=== PATIENT | female | born 1975 | race Caucasian/White ===

== ENCOUNTER 2018-03-22 16:53 | Outpatient (RCR) | payer BC, SELFPAY ==
--- NOTE | 2018-03-22 17:36 | HP.PTEVAL_ITS ---
Patient's Visit Information SALUD BOLANOS is a 43 year old F referred to Physical Therapy by Kee Stringer MD with a diagnosis of BPPV. Date of Evaluation: 03/22/18 Physical Therapist: Cherelle Coy - Visit Plan Plan: Pt will call in within 2 weeks if she has any kind of dizziness or nystagmus come back. She will call in at 2 week eusebio to let me know how she is feeling and if feeling good, she will be discharged. - Subjective Subjective: Pt is doing really good today. She reports that she is having no dizziness today, just some pressure in head from time to time. and she was put on meclazeine and just came off the meds yesterday morning cause she wanted to see how she would do today....had an episode on Tuesday. Dr saw the eye twitch thing last week. SHe was getting the spins when lay down and turn directions and that started Months ago. The spinning lasts 20 seconds... felt breathless all the time (lightheadedness). The Dr did this thing with my head and saw the nystagmus. Pt L4/L5 sciatica. Pt has had disectomy and epidurals and nerve blocks. Her dad got vertigo when he was 45. - Objective -Hallpike to the R and - Hallpike to the L for dixxiness or nystagmus. - B roll test for dizziness or nystagmus - Rehabilitation Potential Rehabilitation Potential: Good - Anticipated Interventions Thank you for the opportunity to evaluate your patient. For Medicare and Medicare HMO plans, please review the plan of care and approve it. It will need to be FAXED BACK to us at [phone] for Medicare purposes. Please let me know if there are questions or concerns regarding this plan of care. Physician Signature: Date:
--- NOTE | 2018-09-15 08:49 | HP.PT.NRP ---
HP - Discharge Summary (1) - Patient Information SALUD BOLANOS was seen in my office for initial evaluation on 03/22/18. The following Plan of Care was established for this patient: This patient was last seen in our office 03/22/18. Pertinent comments regarding their Physical therapy will appear below: Pt was to call in if she had any recurrent nystagmus and she did not call in. She will be discharged at this time. At this point I will be discontinuing this patient from physical therapy. I would be happy to see this patient again in the future if found appropriate by the physician. Thank you! Cherelle Coy, MPT
== END 2018-03-22 19:00 | disposition home or self-care (01) ==
LOC: PT 16:53
PROVIDERS: Family Provider Family Medicine; PCP Family Medicine; Visit Provider Family Medicine
DX: H81.10 Benign paroxysmal vertigo, unspecified ear (principal)
CPT/HCPCS: 97161

== ENCOUNTER → 2018-04-11 10:57 | Outpatient (CLI) | payer BC, SELFPAY ==
[2018-04-11 11:01] LABS: Bacteria 0 SEEN /hpf (None Seen); Red Blood Cells-Urine 0 SEEN /hpf (0-5)
[2018-04-11 12:10] LABS: Absolute Lymphocyte Count 2.29 X10^3/ul (0.83-4.51); Absolute Neutrophil Count 3.6 X10^3/uL (2.0-7.7); Basophil# 0.02 X10^3/uL; Basophil% 0.3 % (0-1); Eosinophil# 0.17 X10^3/uL; Eosinophils% 2.6 % (0-5); Hematocrit 38.1 % (37-47); Hemoglobin 12.1 g/dl (12.0-15.0); Lymphocyte # 2.29 X10^3/ul (4.0); Lymphocyte % 35.4 % (19-41); Mean Corp Hgb Conc 31.8 g/gl (32-36); Mean Corpuscular Hgb 26.5 pg (27.0-32.0); Mean Corpuscular Volume 83.4 fL (81-99); Mean Platelet Vol. 10.8 fl (6.2-12.0); Monocyte# 0.39 X10^3/uL; Neutrophil # 3.59 X10^3/uL (2.7-7.7); Neutrophil % 55.5 % (47-70); Platelet Count 229 K/mm3 (150-450); RBC Distribution Width CV 13.7 % (11.6-14.6); RBC Distribution Width SD 41.4 fl (35.1-43.9); Red Blood Count 4.57 M/mm3 (4.2-5.4); White Blood Count 6.5 K/mm3 (4.4-11.0)
[2018-04-11 12:11] LABS: POSITIVE COUNT NO; POSITIVE DIFFERENTIAL NO; POSITIVE MORPHOLOGY NO
[2018-04-11 12:13] LABS: Color, Urine Yellow (Yellow); Glucose, Dipstick Normal (Normal); Ketone-Dipstick Negative (Negative); Leukocyte Esterase-Dipstick Negative /ul (Negative); Nitrite-Dipstick Negative (Negative); Occult Blood-Urine Negative /ul (Negative); Protein-Dipstick Negative (Negative); Specific Gravity, Urine 1.015 (1.002-1.030); Urine Bilirubin Dipstick Negative (Negative); Urine Clarity Clear (Clear); Urine Urobilinogen Normal (Normal)
[2018-04-11 12:23] LABS: White Blood Cells 0-5 SEEN /hpf (0-5)
[2018-04-11 12:24] LABS: Mucous, Urine RARE /hpf (<or=2+)
[2018-04-11 12:25] LABS: Squamous Epithelial Cells - UA 0-5 SEEN /hpf (5-10)
[2018-04-11 12:33] LABS: Microalbumin,Random Urine 9.4 mg/L (NO RANGE EST.); Microalbumin:Creatinine Ratio 6.1 mg/g CRE (<30 mg/g CRE)
[2018-04-11 12:51] LABS: AST(SGOT) 17 U/L (15-37); Alanine Aminotransfer ALT/SGPT 40 U/L (13-56); Albumin, Serum 3.9 g/dL (3.2-5.0); Alkaline Phosphatase 78 U/L (45-117); Anion Gap 10 (5-15); BUN 11 mg/dL (7-18); BUN/Creat Ratio 17.5 RATIO (10-20); Calcium,Total 9.2 mg/dL (8.5-10.1); Chloride 107 mmol/L (98-107); Cholesterol 81 mg/dL (200); Creatinine, Serum 0.63 mg/dL (0.55-1.02); EST Glomerular Filtration Rate 109 mL/min (>60); Est Glom Filt Rate - Afr Amer 132 mL/min (>60); Globulin 3.8 g/dL (2.2-4.2); Glucose 94 mg/dL (74-106); High Density Lipoprotein 22 mg/dL; Potassium 3.6 mmol/L (3.5-5.1); Protein, Total 7.7 g/dL (6.4-8.2); Sodium Level 139 mmol/L (136-145); Thyroid Stim Hormone (TSH) 3.87 uIU/mL (0.358-3.74); Triglycerides 142 mg/dL; Very Low Density Lipoprotein 28 mg/dL (5-40)
[2018-04-12 09:56] LABS: T4 Free Direct 0.87 ng/dL (0.76-1.46)
[2018-04-14 12:08] LABS: Thyroid Peroxidase AB 175 IU/mL (0-34)
[2018-04-14 14:23] LABS: Anti-Thyroglobulin AB 17.5 IU/mL (0.0-0.9)
== END ==
PROVIDERS: Family Provider Family Medicine; PCP Family Medicine; Visit Provider Family Medicine
DX: I10 Essential (primary) hypertension (principal); E11.9 Type 2 diabetes mellitus without complications; E78.5 Hyperlipidemia, unspecified; R79.89 Other specified abnormal findings of blood chemistry
CPT/HCPCS: 36415; 80053; 80061; 81001; 82043; 82570; 84432; 84439; 84443; 85025; 86376; 86800

== ENCOUNTER → 2018-05-18 09:16 | Outpatient (CLI) | payer BC, SELFPAY ==
--- NOTE | 2018-05-18 09:24 | RAD_ITS ---
STUDY: AIR-CONTRAST ESOPHAGRAM STUDY REASON FOR EXAM: Female, 43 years old. Vomiting RADIATION DOSAGE (If Supplied By Facility): CTDIvol = ( 48.49 ) mGy, FLUOROSCOPY TIME (if supplied): (0:51) minutes/seconds, 15 images. TECHNIQUE: Barium pill swallow with sips of water is performed at the beginning of the study without difficulty. Multiple barium swallows were performed under fluoroscopic monitoring. Multiple views of the esophagus, the upper stomach were performed. COMPARISON: None. FINDINGS: Barium pill swallow with sips of water is performed at the beginning of the study without difficulty. The esophagus appears normal in size and shape it shows unremarkable mucosal pattern. There is no evidence of hiatal hernia or abnormal vascular compression. RAD/Esophagus Only IMPRESSION: Unremarkable study. Electronically Signed: Tomasa Peoples MD at 9:31 EDT Tel , Service support ,
== END ==
PROVIDERS: Family Provider Family Medicine; PCP Family Medicine; Referring Provider Family Medicine; Visit Provider Family Medicine
DX: K21.9 Gastro-esophageal reflux disease without esophagitis (principal)
CPT/HCPCS: 74220

== ENCOUNTER → 2018-05-19 10:48 | Outpatient (CLI) | payer BC, SELFPAY ==
--- NOTE | 2018-05-19 10:55 | NM_ITS ---
CLINICAL: 43-year-old female with reported history of early satiety. SEMI-SOLID PHASE 99m Tc SULFUR COLLOID GASTRIC EMPTYING STUDY COMPARISON: None available FINDINGS: The patient was administered 1.1 mCi of 99m Tc sulfur colloid mixed with oatmeal and consumed per os. Image acquisitions in the anterior-posterior projections for a total of 60 minutes. There is prompt visualization of the stomach. There is no gastroesophageal reflux identified. The T1/2 linear fit was calculated to be 50.15 minutes, (Normal: 12-56 minutes). NM/Gastric Emptying Study IMPRESSION: 1. NORMAL 99m Tc sulfur colloid semi-solid phase (oatmeal) gastric emptying imaging examination. A. There is normal and preserved semi-solid phase gastric emptying compared to normal controls. (Calos et al, J Nucl Med Tech 38: 186, 2010). Electronically Signed: Salvadro Aguayo DO at 23:17 EDT Tel , Service support ,
== END ==
PROVIDERS: Family Provider Family Medicine; PCP Family Medicine; Visit Provider Family Medicine
DX: R68.81 Early satiety (principal)
CPT/HCPCS: 78264; A9541

== ENCOUNTER → 2018-08-23 08:24 | Outpatient (CLI) | payer BC, SELFPAY ==
[2018-08-23 10:33] LABS: Absolute Lymphocyte Count 2.15 X10^3/ul (0.83-4.51); Absolute Neutrophil Count 2.6 X10^3/uL (2.0-7.7); Basophil# 0.03 X10^3/uL; Basophil% 0.6 % (0-1); Eosinophil# 0.15 X10^3/uL; Eosinophils% 2.8 % (0-5); Hematocrit 38.9 % (37-47); Hemoglobin 12.3 g/dl (12.0-15.0); Lymphocyte # 2.15 X10^3/ul (4.0); Lymphocyte % 40.8 % (19-41); Mean Corp Hgb Conc 31.6 g/gl (32-36); Mean Corpuscular Hgb 26.2 pg (27.0-32.0); Mean Corpuscular Volume 82.9 fL (81-99); Monocyte# 0.33 X10^3/uL; Monocyte% 6.3 % (0-10); Neutrophil # 2.61 X10^3/uL (2.7-7.7); Neutrophil % 49.5 % (47-70); Platelet Count 221 K/mm3 (150-450); RBC Distribution Width SD 39.5 fl (35.1-43.9); Red Blood Count 4.69 M/mm3 (4.2-5.4); White Blood Count 5.3 K/mm3 (4.4-11.0)
[2018-08-23 10:34] LABS: POSITIVE COUNT NO; POSITIVE DIFFERENTIAL NO; POSITIVE MORPHOLOGY NO
[2018-08-23 10:40] LABS: Microalbumin,Random Urine 55.4 mg/L (NO RANGE EST.); Microalbumin:Creatinine Ratio 30.8 mg/g CRE (<30 mg/g CRE)
[2018-08-23 10:46] LABS: Hemoglobin A1c 8.8 % (4.2-6.3)
[2018-08-23 11:19] LABS: ALB/GLOB Ratio 1.1 RATIO (0.9-2.4); AST(SGOT) 41 U/L (15-37); Alanine Aminotransfer ALT/SGPT 73 U/L (13-56); Alkaline Phosphatase 113 U/L (45-117); Anion Gap 11 (5-15); BUN 11 mg/dL (7-18); Calcium,Total 8.7 mg/dL (8.5-10.1); Chloride 102 mmol/L (98-107); Cholesterol 105 mg/dL (200); Creatinine, Serum 0.58 mg/dL (0.55-1.02); EST Glomerular Filtration Rate 119 mL/min (>60); Est Glom Filt Rate - Afr Amer 144 mL/min (>60); Globulin 3.7 g/dL (2.2-4.2); Glucose 185 mg/dL (74-106); High Density Lipoprotein 29 mg/dL; Potassium 3.4 mmol/L (3.5-5.1); Protein, Total 7.7 g/dL (6.4-8.2); Sodium Level 138 mmol/L (136-145); T4 Free Direct 0.94 ng/dL (0.76-1.46); Thyroid Stim Hormone (TSH) 2.77 uIU/mL (0.358-3.74); Triglycerides 228 mg/dL; Very Low Density Lipoprotein 46 mg/dL (5-40)
[2018-08-31 09:46] LABS: Anti-Thyroglobulin AB 13.8 IU/mL (0.0-0.9); Thyroglobulin RIA 12 ng/mL (.); Thyroid Peroxidase AB 109 IU/mL (0-34)
== END ==
PROVIDERS: Family Provider Family Medicine; PCP Family Medicine; Visit Provider Family Medicine
DX: E11.9 Type 2 diabetes mellitus without complications (principal); E06.3 Autoimmune thyroiditis; I10 Essential (primary) hypertension; E78.5 Hyperlipidemia, unspecified
CPT/HCPCS: 36415; 80053; 80061; 82043; 82570; 83036; 84432; 84439; 84443; 85025; 86376; 86800

== ENCOUNTER → 2018-09-04 15:40 | Outpatient (CLI) | payer BC, SELFPAY ==
[2018-09-04 17:55] LABS: Iron Binding Capacity,Total 331 ug/dL (250-450)
[2018-09-04 19:01] LABS: Vitamin D,25 Hydroxy 23.1 ng/mL (29.95-100.01)
--- OUTSIDE RECORDS SUMMARY | 2018-11-07 03:42 | XMS RPT_ITS ---
:1975 Author Organization OHIP Care Team Providers Name Role Phone Kee Stringer Attending Unavailable Kee Stringer Primary Care Unavailable Luis Leonard Attending Unavailable Kee Stringer Primary Care Unavailable Kee Stringer Attending Unavailable Kee Stringer Referring Unavailable Kee Stringer Primary Care Unavailable Kee Stringer Attending Unavailable Kee Stringer Primary Care Unavailable Kee Stringer Attending Unavailable Kee Stringer Referring Unavailable Kee Stringer Primary Care Unavailable Kee Stringer Attending Unavailable Kee Stringer Referring Unavailable Kee Stringer Primary Care Unavailable Kee Stringer Attending Unavailable Kee Stringer Primary Care Unavailable PROBLEMS PROBLEMS DATE TYPE CONDITION / CODE ATTENDING STATUS SOURCE 05/03/2018 Unknown H81.10 - Benign Kee Stringer paroxysmal [facility] unspecified ear / Repository H81.10(ICD-10) PROCEDURES PROCEDURES No Procedure Records FoundRESULTS RESULTS ANKLE MIN 3 VIEWS Observed: 09/05/2018 Status: F Source: [place] 3:36 PM [facility] REPOSITORY [facility] Imaging Services [address] [place] [address] Ankle min 3 Views MR#: [id number] Acct: [id number] Name: LATANYA BOLANOS Rep #: [id number] : 1975 F 43 From: Nate Av[place] MD PCP: Kee Stringer MD Status: REG CLI Study: Ankle min 3 Views Date of Exam: 09/05/18 Exam# [id number] Ordering Dr: Kee Stringer MD STUDY: X-RAY - RIGHT ANKLE REASON FOR EXAM: Female, 43 years old. Pain. TECHNIQUE: 3 view(s) of the ankle. COMPARISON: None. FINDINGS: Healed fracture of the distal fibula. Normal medial and lateral malleoli. Normal tibiotalar articulation and ankle mortise. Normal visualized talus and calcaneus. The visualized subtalar, talonavicular, calcaneocuboid and tarsal articulations are normal. The soft tissue structures are unremarkable. RAD/Ankle min 3 Views IMPRESSION: Healed fracture of the distal fibula. No acute abnormality is seen. Electronically Signed: Nate Avila MD at 14:01 EST , Service support , CC: Kee Stringer MD Teacher Vocal: Signed IRON BINDING Collected: 09/04/2018 Status: F Source: [place] CAPACITY,TOTAL 3:43 PM [facility] REPOSITORY TYPE CODE TESTS RESULT OUT OF RANGE REFERENCE UNITS LAB L503.6075 250-450 ug/dL Normal TIBC 331 Performed By: #### L503.6075 #### [facility] [address] [place], [address] VITAMIN D,25 HYDROXY Collected: 09/04/2018 Status: F Source: [place] 3:43 PM [facility] REPOSITORY TYPE CODE TESTS RESULT OUT OF REFERENCE UNITS RANGE LAB L506.1000 29.95-100.01 ng/mL Low Vitamin D 23.1 25-OH Result Comment: Vitamin D 25(OH) Status Range Deficiency <20 ng/mL (50nmol/L) Insuffciency 20 - 30 ng/mL (50 - 75 nmol/L) Sufficiency 30 - 100 ng/mL (75 - 250 nmol/L) Toxicity >100 ng/mL (>250 nmol/L) Performed By: #### L506.1000 #### [facility] [address] [place], [address] CBC W/DIFF, AUTOMATED Collected: 08/23/2018 Status: F Source: [place] 8:28 AM [facility] REPOSITORY TYPE CODE TESTS RESULT OUT OF RANGE REFERENCE UNITS LAB L100.1000 4.4-11.0 K/mm3 Normal WBC 5.3 LAB L100.1200 4.2-5.4 M/mm3 Normal RBC 4.69 LAB L100.1300 12.0-15.0 g/dl Normal HGB 12.3 LAB L100.1400 37-47 % Normal HCT 38.9 LAB L100.1500 81-99 fL Normal MCV 82.9 LAB L100.1600 27.0-32.0 pg Low MCH 26.2 LAB L100.1700 32-36 g/gl Low MCHC 31.6 LAB L100.1810 11.6-14.6 % Normal RDW CV 13.0 LAB L100.1820 35.1-43.9 fl Normal RDW SD 39.5 LAB L100.1900 150-450 K/mm3 Normal PLT 221 LAB L100.2000 6.2-12.0 fl Normal MPV 11.0 LAB L100.2100 47-70 % Normal NEUT% 49.5 LAB L100.2200 19-41 % Normal LY% 40.8 LAB L100.2300 0-10 % Normal MONO% 6.3 LAB L100.2400 0-5 % Normal EO% 2.8 LAB L100.2500 0-1 % Normal BASO% 0.6 LAB L100.2550 0.0-0.9 % Normal IM GRAN % 0.000 Result Comment: IG% - Immature Granulocytes (promyelocytes, myelocytes and metamyelocytes) > 1% indicates that a LEFT SHIFT is Present. LAB L100.2620 2.0-7.7 X10 3/uL Normal Absolute Neut 2.6 LAB L100.2720 0.83-4.51 X10 3/ul Normal Absolute Lymph 2.15 Performed By: #### L100.0100 #### [facility] [address] [facility] [place], [address] MICROALB:CREAT Collected: 08/23/2018 Status: F Source: [facility] UR 8:28 AM [facility] REPOSITORY TYPE CODE TESTS RESULT OUT OF RANGE REFERENCE UNITS LAB L501.1200 NO RANGE EST. mg/dL Normal UR CREAT 180.00 LAB L502.0500 NO RANGE EST. mg/L Normal 55.4 MICROALBUMIN ,UR LAB L502.0600 <30 mg/g CRE mg/g CRE High 30.8 MALB:CREAT Performed By: #### L502.0250 #### [facility] [address] [facility]. [place], [place], [address] HEMOGLOBIN A1C Collected: 08/23/2018 Status: F Source: [place] 8:28 AM [facility] REPOSITORY TYPE CODE TESTS RESULT OUT OF RANGE REFERENCE UNITS LAB L501.9985 4.2-6.3 % High HGB A1C 8.8 Performed By: #### L501.9985 #### [facility] [address] [facility] [place], [address] COMPREHENSIVE METABOLIC Collected: 08/23/2018 Status: F Source: [place] PROFIL 8:28 AM [facility] REPOSITORY TYPE CODE TESTS RESULT OUT OF RANGE REFERENCE UNITS LAB L501.0100 74-106 mg/dL High GLU 185 Result Comment: Fasting Glucose result greater than or equal to 126 mg/dL suggests DIABETES MELLITUS per A.D.A. criteria. Please note revised GLUCOSE reference range effective 2017. LAB L501.1000 7-18 mg/dL Normal BUN 11 LAB L501.1100 0.55-1.02 mg/dL Normal CREAT,SERUM 0.58 Result Comment: The validity of the calculated GFR AND GFRAA in patients over 70 years has not been determined. Clinical correlation is essential. LAB L501.1110 >60 mL/min Normal EST GFR 119 Result Comment: Non- GFR Calc LAB L501.1115 >60 mL/min Normal EST GFR - AA 144 Result Comment: GFR Calc LAB L501.1300 10-20 RATIO Normal BUN/CRE 19.0 LAB L501.1500 6.4-8.2 g/dL T Normal PROT 7.7 LAB L501.1800 3.2-5.0 g/dL Normal ALB 4.0 LAB L501.1950 2.2-4.2 g/dL Normal GLOB 3.7 LAB L501.2000 0.9-2.4 RATIO Normal A/G 1.1 LAB L501.2200 8.5-10.1 mg/dL CA Normal 8.7 LAB L501.4100 15-37 U/L High AST 41 LAB L501.4305 45-117 U/L Normal ALK P 113 LAB L501.4405 13-56 U/L High ALT 73 LAB L501.4600 0.20-1.00 mg/dL T Normal BILI 0.30 LAB L501.5300 136-145 mmol/L NA Normal 138 LAB L501.5600 3.5-5.1 mmol/L Low K 3.4 LAB L501.5900 98-107 mmol/L CL Normal 102 LAB L501.6100 21.0-32.0 mmol/L Normal CO2 25.0 LAB L501.6200 5-15 Normal GAP 11 Performed By: #### L500.4050, L500.4100, L501.9520, L506.0400 #### [facility] [address] [place], [place], [address] LIPID PROFILE Collected: 08/23/2018 Status: F Source: [place] 8:28 AM [facility] REPOSITORY TYPE CODE TESTS RESULT OUT OF RANGE REFERENCE UNITS LAB L501.4900 200 mg/dL Normal CHOL 105 Result Comment: <200 mg/dL Desirable 200-240 mg/dL Borderline >240 mg/dL High Risk LAB L501.5000 mg/dL High TRIG 228 Result Comment: The drugs N-Acetylcysteine and Metamizole may falsely depress this assay. Serum Triglycerides Reference Interval Normal <150 mg/dL Borderline high 150 - 199 mg/dL High 200 - 499 mg/dL Very High > or = 500 mg/dL LAB L501.6400 mg/dL Low HDL 29 Result Comment: The drugs N-Acetylcysteine and Metamizole may falsely depress this assay. Reference Range HDL <40 mg/dL Low HDL Cholesterol HDL >or= 60 mg/dL High HDL Cholesterol LAB L501.6500 0-130 mg/dL Normal LDL 30 LAB L501.6600 5-40 mg/dL High VLDL 46 Performed By: #### L500.4050, L500.4100, L501.9520, L506.0400 #### [facility] [address] [facility] [place], [address] THYROID STIM HORMONE Collected: 08/23/2018 Status: F Source: [place] (TSH) 8:28 AM [facility] REPOSITORY TYPE CODE TESTS RESULT OUT OF RANGE REFERENCE UNITS LAB L501.9520 0.358-3.74 uIU/mL Normal TSH 2.77 Performed By: #### L500.4050, L500.4100, L501.9520, L506.0400 #### [facility] [address] [place], [place], [address] T4 FREE DIRECT Collected: 08/23/2018 Status: F Source: [place] 8:28 AM [facility] REPOSITORY TYPE CODE TESTS RESULT OUT OF RANGE REFERENCE UNITS LAB L506.0400 0.76-1.46 ng/dL Normal T4 FREE 0.94 DIRECT Performed By: #### L500.4050, L500.4100, L501.9520, L506.0400 #### [facility] [address] [place], [address] THYROGLOBULIN W/ANTI-TG Collected: 08/23/2018 Status: F Source: [place] AB 8:28 AM [facility] REPOSITORY TYPE CODE TESTS RESULT OUT OF RANGE REFERENCE UNITS LAB L3300.7025 0.0-0.9 IU/mL High ANTI-TG 13.8 AB Result Comment: Thyroglobulin Antibody measured by [facility] LAB L3300.7030 . ng/mL Normal TG-JEREMIAH 12 Result Comment: Reference Range: Pubertal Children and Adults: <40 According to the National Academy of Clinical Biochemistry, the reference interval for Thyroglobulin (TG) should be related to euthyroid patients and not for patients who underwent thyroidectomy. TG reference intervals for these patients depend on the residual mass of the thyroid tissue left after surgery. Establishing a post-operative baseline is recommended. The assay quantitation limit is 2.0 ng/mL. Performed By: #### L3300.6820, L3300.6900 #### [facility] (refer to report for specific site) refer to report for address and phone number THYROID PEROXIDASE AB Collected: 08/23/2018 Status: F Source: [place] 8:28 AM [facility] REPOSITORY TYPE CODE TESTS RESULT OUT OF RANGE REFERENCE UNITS LAB L3300.6900 0-34 IU/mL High TPO AB [id number] Result Comment: Performed at: [facility] [address] [id number] Certified Maintenance Welder: Stefan Dolan PhD, Phone: [phone] Performed at: [facility] [address] [place] [id number] Certified Maintenance Welder: Jeff Almonte MD, Phone: [phone] Performed By: #### L3300.6820, L3300.6900 #### [facility] (refer to report for specific site) refer to report for address and phone number GASTRIC EMPTYING Observed: 05/19/2018 Status: F Source: [place] STUDY 10:56 AM [facility] REPOSITORY [facility] Imaging Services [address] [place] [address] Gastric Emptying Study MR#: [id number] Acct: [id number] Name: LUIS MIGUELLATANYA J Rep #: [id number] : 1975 F 43 From: Salvador Aguayo DO PCP: Kee Stringer MD Status: REG CLI Study: Gastric Emptying Study Date of Exam: 05/19/18 Exam# [id number] Ordering Dr: Kee Stringer MD CLINICAL: 43-year-old female with reported history of early satiety. SEMI-SOLID PHASE 99m Tc SULFUR COLLOID GASTRIC EMPTYING STUDY COMPARISON: None available FINDINGS: The patient was administered 1.1 mCi of 99m Tc sulfur colloid mixed with oatmeal and consumed per os. Image acquisitions in the anterior-posterior projections for a total of 60 minutes. There is prompt visualization of the stomach. There is no gastroesophageal reflux identified. The T1/2 linear fit was calculated to be 50.15 minutes, (Normal: 12- 56 minutes). NM/Gastric Emptying Study IMPRESSION: 1. NORMAL 99m Tc sulfur colloid semi-solid phase (oatmeal) gastric emptying imaging examination. A. There is normal and preserved semi-solid phase gastric emptying compared to normal controls. (Calos et al, J Nucl Med Tech 38: 186, 2010). Electronically Signed: Salvador Aguayo DO at 23:17 EDT Tel , Service support , CC: Kee Stringer MD Teacher Vocal: Signed ESOPHAGUS ONLY Observed: 05/18/2018 Status: F Source: [place] 9:24 AM [facility] REPOSITORY [facility] Imaging Services [address] [place] [address] Esophagus Only MR#: [id number] Acct: [id number] Name: LATANYA BOLANOS Rep #: [id number] : 1975 F 43 From: Tomasa Peoples MD PCP: Kee Stringer MD Status: REG CLI Study: Esophagus Only Date of Exam: 05/18/18 Exam# [id number] Ordering Dr: Kee Stringer MD STUDY: AIR-CONTRAST ESOPHAGRAM STUDY REASON FOR EXAM: Female, 43 years old. Vomiting RADIATION DOSAGE (If Supplied By Facility): CTDIvol = ( 48.49 ) mGy, FLUOROSCOPY TIME (if supplied): (0:51) minutes/seconds, 15 images. TECHNIQUE: Barium pill swallow with sips of water is performed at the beginning of the study without difficulty. Multiple barium swallows were performed under fluoroscopic monitoring. Multiple views of the esophagus, the upper stomach were performed. COMPARISON: None. FINDINGS: Barium pill swallow with sips of water is performed at the beginning of the study without difficulty. The esophagus appears normal in size and shape it shows unremarkable mucosal pattern. There is no evidence of hiatal hernia or abnormal vascular compression. RAD/Esophagus Only IMPRESSION: Unremarkable study. Electronically Signed: Tomasa Peoples MD at 9:31 EDT Tel , Service support , CC: Kee Stringer MD Teacher Vocal: Signed THYROGLOBULIN W/ANTI-TG Collected: 04/12/2018 Status: F Source: [place] AB 10:58 AM [facility] REPOSITORY Order Comment: PLEASE ADD T4F TPO AND THYROGLOBULIN AB PER XTRA SERUM TUBE WAS DRAWN TYPE CODE TESTS RESULT OUT OF RANGE REFERENCE UNITS LAB L3300.7025 0.0-0.9 IU/mL High ANTI-TG 17.5 AB Result Comment: Thyroglobulin Antibody measured by [facility] LAB L3300.7030 . ng/mL Test Normal TG-JEREMIAH not performed Result Comment: Quantity was not sufficient for analysis. CONTACTED MACKENZIE AT YOUR FACILITY 04-14-18 LAB L3400.1030 Normal Test not THYROGLOB performed Result Comment: QUANTITY WAS NOT SUFFICIENT TO RUN THYROGLOBULIN Performed By: #### L3300.6820, L3300.6900 #### [facility] (refer to report for specific site) refer to report for address and phone number THYROID PEROXIDASE AB Collected: 04/12/2018 Status: F Source: [place] 10:58 AM [facility] REPOSITORY Order Comment: PLEASE ADD T4F TPO AND THYROGLOBULIN AB PER XTRA SERUM TUBE WAS DRAWN TYPE CODE TESTS RESULT OUT OF RANGE REFERENCE UNITS LAB L3300.6900 0-34 IU/mL High TPO AB 175 [id number] Performed By: #### L3300.6820, L3300.6900 #### [facility] (refer to report for specific site) refer to report for address and phone number CBC W/DIFF, AUTOMATED Collected: 04/11/2018 Status: F Source: [place] 10:58 AM [facility] REPOSITORY Order Comment: Order Date: 04/11/18 Order Info: 0184-1 - CBCD TYPE CODE TESTS RESULT OUT OF RANGE REFERENCE UNITS LAB L100.1000 4.4-11.0 K/mm3 Normal WBC 6.5 LAB L100.1200 4.2-5.4 M/mm3 Normal RBC 4.57 LAB L100.1300 12.0-15.0 g/dl Normal HGB 12.1 LAB L100.1400 37-47 % Normal HCT 38.1 LAB L100.1500 81-99 fL Normal MCV 83.4 LAB L100.1600 27.0-32.0 pg Low MCH 26.5 LAB L100.1700 32-36 g/gl Low MCHC 31.8 LAB L100.1810 11.6-14.6 % Normal RDW CV 13.7 LAB L100.1820 35.1-43.9 fl Normal RDW SD 41.4 LAB L100.1900 150-450 K/mm3 Normal PLT 229 LAB L100.2000 6.2-12.0 fl Normal MPV 10.8 LAB L100.2100 47-70 % Normal NEUT% 55.5 LAB L100.2200 19-41 % Normal LY% 35.4 LAB L100.2300 0-10 % Normal MONO% 6.0 LAB L100.2400 0-5 % Normal EO% 2.6 LAB L100.2500 0-1 % Normal BASO% 0.3 LAB L100.2550 0.0-0.9 % Normal IM GRAN % 0.200 Result Comment: IG% - Immature Granulocytes (promyelocytes, myelocytes and metamyelocytes) > 1% indicates that a LEFT SHIFT is Present. LAB L100.2620 2.0-7.7 X10 3/uL Normal Absolute Neut 3.6 LAB L100.2720 0.83-4.51 X10 3/ul Normal Absolute Lymph 2.29 Performed By: #### L100.0100, L502.0250, L500.4050, L500.4100, L501.9520 #### [facility] [address] [place], [address] MICROALB:CREAT Collected: 04/11/2018 Status: F Source: [place] RATIO,RANDOM UR 10:58 AM [facility] REPOSITORY Order Comment: Order Date: 04/11/18 Order Info: 0779-1 - [place] TYPE CODE TESTS RESULT OUT OF RANGE REFERENCE UNITS LAB L501.1200 NO RANGE EST. mg/dL Normal UR CREAT 153.00 LAB L502.0500 NO RANGE EST. mg/L Normal 9.4 MICROALBUMIN ,UR LAB L502.0600 <30 mg/g CRE mg/g CRE Normal 6.1 MALB:CREAT Performed By: #### L100.0100, L502.0250, L500.4050, L500.4100, L501.9520 #### [facility] [address] [place], [place], [address] COMPREHENSIVE METABOLIC Collected: 04/11/2018 Status: F Source: [place] PROFIL 10:58 AM [facility] REPOSITORY Order Comment: PLEASE ADD T4F TPO AND THYROGLOBULIN AB PER XTRA SERUM TUBE WAS DRAWN Order Date: 04/11/18 Order Info: 0786-1 - CMP Order Info: [id number] - LIPID Order Info: 3016-3 - TSH TYPE CODE TESTS RESULT OUT OF RANGE REFERENCE UNITS LAB L501.0100 74-106 mg/dL Normal GLU 94 Result Comment: Please note revised GLUCOSE reference range effective 2017. LAB L501.1000 7-18 mg/dL Normal BUN 11 LAB L501.1100 0.55-1.02 mg/dL Normal CREAT,SERUM 0.63 Result Comment: The validity of the calculated GFR AND GFRAA in patients over 70 years has not been determined. Clinical correlation is essential. LAB L501.1110 >60 mL/min Normal EST GFR 109 Result Comment: Non- GFR Calc LAB L501.1115 >60 mL/min Normal EST GFR - AA 132 Result Comment: GFR Calc LAB L501.1300 10-20 RATIO Normal BUN/CRE 17.5 LAB L501.1500 6.4-8.2 g/dL T Normal PROT 7.7 LAB L501.1800 3.2-5.0 g/dL Normal ALB 3.9 LAB L501.1950 2.2-4.2 g/dL Normal GLOB 3.8 LAB L501.2000 0.9-2.4 RATIO Normal A/G 1.0 LAB L501.2200 8.5-10.1 mg/dL CA Normal 9.2 LAB L501.4100 15-37 U/L Normal AST 17 LAB L501.4305 45-117 U/L Normal ALK P 78 LAB L501.4405 13-56 U/L Normal ALT 40 LAB L501.4600 0.20-1.00 mg/dL T Normal BILI 0.20 LAB L501.5300 136-145 mmol/L NA Normal 139 LAB L501.5600 3.5-5.1 mmol/L K Normal 3.6 LAB L501.5900 98-107 mmol/L CL Normal 107 LAB L501.6100 21.0-32.0 mmol/L Normal CO2 22.0 LAB L501.6200 5-15 Normal GAP 10 Performed By: #### L100.0100, L502.0250, L500.4050, L500.4100, L501.9520 #### [facility] [address] [place], [address] LIPID PROFILE Collected: 04/11/2018 Status: F Source: [place] 10:58 AM [facility] REPOSITORY Order Comment: PLEASE ADD T4F TPO AND THYROGLOBULIN AB PER XTRA SERUM TUBE WAS DRAWN Order Date: 04/11/18 Order Info: 0786-1 - CMP Order Info: [id number] - LIPID Order Info: 3016-3 - TSH TYPE CODE TESTS RESULT OUT OF RANGE REFERENCE UNITS LAB L501.4900 200 mg/dL Normal CHOL 81 Result Comment: <200 mg/dL Desirable 200-240 mg/dL Borderline >240 mg/dL High Risk LAB L501.5000 mg/dL Normal TRIG 142 Result Comment: The drugs N-Acetylcysteine and Metamizole may falsely depress this assay. Serum Triglycerides Reference Interval Normal <150 mg/dL Borderline high 150 - 199 mg/dL High 200 - 499 mg/dL Very High > or = 500 mg/dL LAB L501.6400 mg/dL Low HDL 22 Result Comment: The drugs N-Acetylcysteine and Metamizole may falsely depress this assay. Reference Range HDL <40 mg/dL Low HDL Cholesterol HDL >or= 60 mg/dL High HDL Cholesterol LAB L501.6500 0-130 mg/dL Normal LDL 31 LAB L501.6600 5-40 mg/dL Normal VLDL 28 Performed By: #### L100.0100, L502.0250, L500.4050, L500.4100, L501.9520 #### [facility] [address] [place], [place], [address] THYROID STIM HORMONE Collected: 04/11/2018 Status: F Source: [place] (TSH) 10:58 AM [facility] REPOSITORY Order Comment: PLEASE ADD T4F TPO AND THYROGLOBULIN AB PER XTRA SERUM TUBE WAS DRAWN Order Date: 04/11/18 Order Info: [id number] - CMP Order Info: [id number] - LIPID Order Info: 3016-3 - TSH TYPE CODE TESTS RESULT OUT OF RANGE REFERENCE UNITS LAB L501.9520 0.358-3.74 uIU/mL High TSH 3.87 Performed By: #### L100.0100, L502.0250, L500.4050, L500.4100, L501.9520 #### [facility] [address] [place], [place], [address] URINALYSIS, COMPLETE Collected: 04/11/2018 Status: F Source: [place] 10:58 AM [facility] REPOSITORY Order Comment: How was Urine Obtained? CLEAN CATCH TYPE CODE TESTS RESULT OUT OF RANGE REFERENCE UNITS LAB L400.3000 Yellow COLOR Normal Yellow LAB L400.3050 Clear Normal CLARITY Clear LAB L400.3200 Normal mg/dl Normal GLUCOSE, UR Normal LAB L400.3300 Negative mg/dL Normal BILIRUBIN URINE Negative LAB L400.3400 Negative mg/dl Normal KETONE UR Negative LAB L400.3465 1.002-1.030 Normal SP.GR. DIPSTX 1.015 LAB L400.3550 5.0 - 8.0 pH UR Normal 6.0 LAB L400.3600 Negative mg/dl PROT Normal DIPSTX Negative LAB L400.3700 Normal mg/dl Normal UROBILI Normal LAB L400.3750 Negative Normal NITRITE UR Negative LAB L400.3780 Negative /ul Normal OCCULT BLOOD-UR Negative LAB L400.3800 Negative /ul LEUK Normal ESTERASE Negative LAB L400.4050 0-5 /hpf WBC Normal 0-5 SEEN LAB L400.4100 0-5 /hpf 0 Normal RBC-UA SEEN LAB L400.4150 5-10 /hpf SQUAM Normal EPI 0-5 SEEN LAB L400.4300 None Seen /hpf 0 Normal BACTERIA SEEN LAB L400.4350 <or=2+ /hpf Normal MUCUS, URINE RARE Performed By: #### L400.0001 #### [facility] [address] [place], [address] T4 FREE DIRECT Collected: 04/11/2018 Status: F Source: [place] 10:58 AM [facility] REPOSITORY Order Comment: PLEASE ADD T4F TPO AND THYROGLOBULIN AB PER XTRA SERUM TUBE WAS DRAWN Order Date: 04/11/18 Order Info: [id number] - CMP Order Info: [id number] - LIPID Order Info: 3016-3 - TSH TYPE CODE TESTS RESULT OUT OF RANGE REFERENCE UNITS LAB L506.0400 0.76-1.46 ng/dL Normal T4 FREE 0.87 DIRECT Performed By: #### L506.0400 #### [facility] [address] [place], [address] INITAL EVALUATION (1) Observed: 03/22/2018 Status: F Source: [place] - PT 5:39 PM [facility] REPOSITORY [facility] [address] [place] [address]. [address] [place], [place] [address] Fax REHABILITATION SERVICES INITIAL EVALUATION MR#: [id number] Acct: [id number] Name: LATANYA BOLANOS Rep #: [id number] : 1975 43 From: Cherelle Coy MPT Referring Dr.: Kee Stringer MD Status: REG R Insurance: [employer] SELF PAY INSURANCE Patient's Visit Information LATANYA BOLANOS is a 43 year old F referred to Physical Therapy by Kee Stringer MD with a diagnosis of BPPV. Date of Evaluation: 03/22/18 Physical Therapist: Cherelle Coy - Visit Plan Plan: Pt will call in within 2 weeks if she has any kind of dizziness or nystagmus come back. She will call in at 2 week eusebio to let me know how she is feeling and if feeling good, she will be discharged. - Subjective Subjective: Pt is doing really good today. She reports that she is having no dizziness today, just some pressure in head from time to time. and she was put on meclazeine and just came off the meds yesterday morning cause she wanted to see how she would do today....had an episode on Tuesday. Dr saw the eye twitch thing last week. SHe was getting the spins when lay down and turn directions and that started Months ago. The spinning lasts 20 seconds... felt breathless all the time (lightheadedness). The Dr did this thing with my head and saw the nystagmus. Pt L4/L5 sciatica. Pt has had disectomy and epidurals and nerve blocks. Her dad got vertigo when he was 45. - Objective -Hallpike to the R and - Hallpike to the L for dixxiness or nystagmus. - B roll test for dizziness or nystagmus - Rehabilitation Potential Rehabilitation Potential: Good - Anticipated Interventions Thank you for the opportunity to evaluate your patient. For Medicare and Medicare HMO plans, please review the plan of care and approve it. It will need to be FAXED BACK to us at [phone] for Medicare purposes. Please let me know if there are questions or concerns regarding this plan of care. Physician Signature: Date: <Electronically signed by Cherelle Coy MPT> 03/22/18 1739 CC: Kee Stringer MD Signed For Medicare only, by signing this I certify the plan of care. Physicians Signature Date ALLERGIES ALLERGIES No Allergies Records FoundENCOUNTERS ENCOUNTERS ADMIT/DISCHARGE ACCOUNT ADMITTING ENCOUNTER LOCATION SOURCE NUMBER CLASS 09/05/2018 [id number] Ambulatory [place] [facility] ing:MTRAD Repository 09/04/2018 [id number] Amb[place] [facility] ing:MFPLAB Repository 08/23/2018 [id number] Ambulatory [place] [facility] ing:MFPLAB Repository 05/19/2018 [id number] Ambulatory [place] 0 [facility] ing:NM Repository 05/18/2018 [id number] [place]ulatory [place] 4 [facility] ing:RAD Repository 04/11/2018 [id number] Ambulatory [place] 0 [facility] ing:MFPLAB Repository 03/22/2018 [id number] Ambulatory [place] 6 [facility] ing:PT Repository PAYERS PAYERS ENCOUNTER GUARANTOR PAYER SUBSCRIBER SOURCE 09/05/2018 LATANYA Blum Primary JEROD [place] [id number] Insurance:ANTHEMPolic SANDERDOB: Community DAYBREAK y Number: [id number] [place] [id number] Repository 59276Dpk: (484) Date:8451-65-59WW [phone] () [id number] [place] [address] 53420MG: 09/05/2018 Secondary NOT GIVENUNK [place] Insurance:SELF PAY [facility] Number: Effective Repository Date:2018-09-05 09/04/2018 LATANYA Blum Primary JEROD [place] [id number] Insurance:ANTHEMPolic SANDERDOB: Community DAYBREAK y Number: [id number] [place] [id number] Repository 00140Zbz: (484) Date:9741-54-50JA [phone] () [id number] [place] [address] 47663BQ: 09/04/2018 Secondary NOT GIVENUNK [place] Insurance:SELF PAY [facility] Number: Effective Repository Date:2018-09-04 08/23/2018 LATANYA Blum Primary JEROD T [place] [id number] Insurance:ANTHEMPolic SANDERDOB: Community DAYBREAK y Number: [id number] [place] [id number] Repository 48853Eqt: (484) Date:0493-93-58TH [phone] () [id number] ROJAS 53506YE: 08/23/2018 Secondary NOT GIVENUNK [place] Insurance:SELF PAY [facility]: Effective Repository Date:2018-08-23 05/19/2018 LATANYA Blum Primary JEROD [place] [id number] Insurance:ANTHEMPolic SANDERDOB: Community DAYBREAK y Number: [id number] [place] [id number] Repository 54122Gwl: (484) Date:1258-49-18EV [phone] () [id number] ROJAS 30888XK: 05/19/2018 Secondary NOT GIVENUNK [place] Insurance:SELF PAY [facility] Number: Effective Repository Date:2018-05-18 05/18/2018 LATANYA Blum Primary JEROD [place] [id number] Insurance:ANTHEMPolic SANDERDOB: Community DAYBREAK y Number: [id number] [place] [id number] Repository 28344Sdz: (484) Date:2918-91-89SO [phone] () [id number] ROJAS 70302NL: 05/18/2018 Secondary NOT GIVENUNK [place] Insurance:SELF PAY [facility] Number: Effective Repository Date:2018-05-16 04/11/2018 Latanya Blum Primary JEROD Banks [id number] Insurance:ANTHEMPolic SANDERDOB: Community Daybreak y Number: [id number] [id number] Repository 27040Jsy: (484) Date:1745-47-47US [phone] () [id number] ROJAS 94390VG: 04/11/2018 Secondary NOT GIVENUNK [place] Insurance:SELF PAY [facility] Number: Effective Repository Date:2018-04-11 03/22/2018 Latanya Blum Primary JEROD [place] Joplinpablito [id number] Insurance:ANTHEMPolic SANDERDOB: Community Daybreak y Number: [id number], [place] [id number] Repository 71241Paa: 484) Date:1356-84-72GJ [phone] () 501907XKZXTHI, [place] [address]YZ: 03/22/2018 Secondary NOT GIVENUNK [place] Insurance:SELF PAY [facility] Number: Effective Repository Date:2018-03-17
== END ==
PROVIDERS: Family Provider Family Medicine; PCP Family Medicine; Visit Provider Internal Medicine Pulmonary Disease
DX: L81.9 Disorder of pigmentation, unspecified (principal); Z86.2 Personal history of diseases of the blood and blood-forming organs and certain disorders involving the immune mechanism
CPT/HCPCS: 36415; 82306; 83550

== ENCOUNTER → 2018-09-05 15:34 | Outpatient (CLI) | payer BC, SELFPAY ==
--- NOTE | 2018-09-05 15:36 | RAD_ITS ---
STUDY: X-RAY - RIGHT ANKLE REASON FOR EXAM: Female, 43 years old. Pain. TECHNIQUE: 3 view(s) of the ankle. COMPARISON: None. FINDINGS: Healed fracture of the distal fibula. Normal medial and lateral malleoli. Normal tibiotalar articulation and ankle mortise. Normal visualized talus and calcaneus. The visualized subtalar, talonavicular, calcaneocuboid and tarsal articulations are normal. The soft tissue structures are unremarkable. RAD/Ankle min 3 Views IMPRESSION: Healed fracture of the distal fibula. No acute abnormality is seen. Electronically Signed: Nate Avila MD at 14:01 EST , Service support ,
--- OUTSIDE RECORDS SUMMARY | 2018-11-07 21:41 | XMS RPT_ITS ---
[...] 09/05/2018 Status: F Source: [place] 3:36 PM [facility] HOSPITAL REPOSITORY [facility] Imaging Services [address] [place] [address] Ankle min 3 Views MR#: [id number] Acct: [id number] Name: LATANYA BOLANOS Rep #: [id number] : 1975 F 43 From: Nate Avila MD PCP: Kee Stringer MD Status: REG CLI Study: Ankle min 3 Views Date of Exam: 09/05/18 Exam# [id number] Ordering Dr: Kee Stringer MD STUDY: X-RAY [...] Service support , CC: Kee Stringer MD Tire Assembler: Signed IRON BINDING Collected: 09/04/2018 Status: F Source: [place] CAPACITY,TOTAL 3:43 PM [facility] TYPE CODE TESTS RESULT OUT OF RANGE REFERENCE UNITS LAB L503.6075 250-450 ug/dL Normal TIBC 331 Performed By: #### L503.6075 #### [facility] [address] [place], [address] VITAMIN D,25 HYDROXY Collected: 09/04/2018 Status: F Source: [place] 3:43 PM [facility] TYPE CODE TESTS RESULT OUT OF REFERENCE UNITS RANGE LAB L506.1000 29.95-100.01 ng/mL Low Vitamin D 23.1 25-OH Result Comment: Vitamin D 25(OH) Status Range Deficiency <20 ng/mL (50nmol/L) Insuffciency 20 - 30 ng/mL (50 - 75 nmol/L) Sufficiency 30 - 100 ng/mL (75 - 250 nmol/L) Toxicity >100 ng/mL (>250 nmol/L) Performed By: #### L506.1000 #### [facility] [address] [place], [address] CBC W/DIFF, AUTOMATED Collected: 08/23/2018 Status: F Source: [place] 8:28 AM [facility] TYPE CODE TESTS RESULT OUT OF [...] Lymph 2.15 Performed By: #### L100.0100 #### [facility] [address] [facility] [place], [address] MICROALB:CREAT Collected: 08/23/2018 Status: F Source: [facility] UR 8:28 AM [facility] TYPE CODE TESTS RESULT OUT OF RANGE REFERENCE UNITS LAB L501.1200 NO RANGE EST. mg/dL Normal UR CREAT 180.00 LAB L502.0500 NO RANGE EST. mg/L Normal 55.4 MICROALBUMIN ,UR LAB L502.0600 <30 mg/g CRE mg/g CRE High 30.8 MALB:CREAT Performed By: #### L502.0250 #### [facility] [address] [facility]. [place], [place], [address] HEMOGLOBIN A1C Collected: 08/23/2018 Status: F Source: [place] 8:28 AM [facility] TYPE CODE TESTS RESULT OUT OF RANGE REFERENCE UNITS LAB L501.9985 4.2-6.3 % High HGB A1C 8.8 Performed By: #### L501.9985 #### [facility] [address] [facility] [place], [address] COMPREHENSIVE METABOLIC Collected: 08/23/2018 Status: F Source: [place] PROFIL 8:28 AM [facility] TYPE CODE TESTS RESULT OUT OF [...] By: #### L500.4050, L500.4100, L501.9520, L506.0400 #### [facility] [address] [place], [place], [id number] LIPID PROFILE Collected: 08/23/2018 Status: F Source: [place] 8:28 AM [facility] TYPE CODE TESTS RESULT OUT OF [...] By: #### L500.4050, L500.4100, L501.9520, L506.0400 #### [facility] [address], [address] THYROID STIM HORMONE Collected: 08/23/2018 Status: F Source: [place] (TSH) 8:28 AM [facility] TYPE CODE TESTS RESULT OUT OF RANGE REFERENCE UNITS LAB L501.9520 0.358-3.74 uIU/mL Normal TSH 2.77 Performed By: #### L500.4050, L500.4100, L501.9520, L506.0400 #### [facility] [address] [place], [place], [address] T4 FREE DIRECT Collected: 08/23/2018 Status: F Source: [place] 8:28 AM [facility] TYPE CODE TESTS RESULT OUT OF RANGE REFERENCE UNITS LAB L506.0400 0.76-1.46 ng/dL Normal T4 FREE 0.94 DIRECT Performed By: #### L500.4050, L500.4100, L501.9520, L506.0400 #### [facility] [address] [place], [address] THYROGLOBULIN W/ANTI-TG Collected: 08/23/2018 Status: F Source: [place] AB 8:28 AM [facility] TYPE CODE TESTS RESULT OUT OF [...] PEROXIDASE AB Collected: 08/23/2018 Status: F Source: [place] 8:28 AM [facility] TYPE CODE TESTS RESULT OUT OF RANGE REFERENCE UNITS LAB L3300.6900 0-34 IU/mL High TPO AB 109 6676 Result Comment: Performed at: [facility] [address] [id number] Tutor Coordinator: Stefan Dolan PhD, Phone: [phone] Performed at: [facility] [address] [place] [id number] Tutor Coordinator: Jeff Almonte MD, Phone: [phone] Performed By: #### L3300.6820, L3300.6900 #### [facility] (refer to report for specific site) refer to report for address and phone number GASTRIC EMPTYING Observed: 05/19/2018 Status: F Source: [place] STUDY 10:56 AM [facility] RE[facility] Imaging Services [address] [place] [address] Gastric Emptying Study MR#: [id number] Acct: [id number] Name: LUIS MIGUELLATANYA J Rep #: [id number] : 1975 F 43 From: Salvador Aguayo DO PCP: Kee Stringer MD Status: REG CLI Study: Gastric Emptying Study Date of Exam: 05/19/18 Exam# [id number] Ordering Dr: Kee Stringer MD CLINICAL: 43-year-old [...] Service support , CC: Kee Stringer MD Tire Assembler: Signed ESOPHAGUS ONLY Observed: 05/18/2018 Status: F Source: [place] 9:24 AM [facility] RE[facility] Services [address] [place] [address] Esophagus Only MR#: [id number] Acct: [id number] Name: LATANYA BOLANOS Rep #: [id number] : 1975 F 43 From: Tomasa Peoples MD PCP: Kee Stringer MD Status: REG CLI Study: Esophagus Only Date of Exam: 05/18/18 Exam# [id number] Ordering Dr: Kee Stringer MD STUDY: AIR-CONTRAST [...] Service support , CC: Kee Stringer MD Tire Assembler: Signed THYROGLOBULIN W/ANTI-TG Collected: 04/12/2018 Status: F Source: [place] AB 10:58 AM [facility] Order Comment: PLEASE ADD T4F TPO [...] 04/12/2018 Status: F Source: [place] 10:58 AM [facility] Order Comment: PLEASE ADD T4F TPO [...] 04/11/2018 Status: F Source: [place] 10:58 AM [facility] Order Comment: Order Date: 04/11/18 Order [...] #### L100.0100, L502.0250, L500.4050, L500.4100, L501.9520 #### [place] [facility] [address] [place], [address] MICROALB:CREAT Collected: 04/11/2018 Status: F Source: [place] RATIO,RANDOM UR 10:58 AM [facility] RE[facility] Order Comment: Order Date: 04/11/18 Order Info: 0779-1 - [place] TYPE CODE TESTS RESULT OUT OF RANGE REFERENCE UNITS LAB L501.1200 NO RANGE EST. mg/dL Normal UR CREAT 153.00 LAB L502.0500 NO RANGE EST. mg/L Normal 9.4 MICROALBUMIN ,UR LAB L502.0600 <30 mg/g CRE mg/g CRE Normal 6.1 MALB:CREAT Performed By: #### L100.0100, L502.0250, L500.4050, L500.4100, L501.9520 #### [facility] [address] [place], [place], [address] COMPREHENSIVE METABOLIC Collected: 04/11/2018 Status: F Source: [place] PROFIL 10:58 AM [facility] Order Comment: PLEASE ADD T4F TPO AND THYROGLOBULIN AB PER XTRA SERUM TUBE WAS DRAWN Order Date: 04/11/18 Order Info: 0786-1 - CMP Order Info: [id number] - LIPID Order Info: 3016-3 - TSH [...] #### L100.0100, L502.0250, L500.4050, L500.4100, L501.9520 #### [facility] [address] [place], [address] LIPID PROFILE Collected: 04/11/2018 Status: F Source: [place] 10:58 AM [facility] Order Comment: PLEASE ADD T4F TPO AND THYROGLOBULIN AB PER XTRA SERUM TUBE WAS DRAWN Order Date: 04/11/18 Order Info: 0786-1 - CMP Order Info: [id number] - LIPID Order Info: 3016-3 - TSH [...] #### L100.0100, L502.0250, L500.4050, L500.4100, L501.9520 #### [facility] [address] [place], [place], [address] THYROID STIM HORMONE Collected: 04/11/2018 Status: F Source: [place] (TSH) 10:58 AM [facility] Order Comment: PLEASE ADD T4F TPO AND THYROGLOBULIN AB PER XTRA SERUM TUBE WAS DRAWN Order Date: 04/11/18 Order Info: 0786-1 - CMP Order Info: [id number] - LIPID Order Info: 3016-3 - TSH TYPE CODE TESTS RESULT OUT OF RANGE REFERENCE UNITS LAB L501.9520 0.358-3.74 uIU/mL High TSH 3.87 Performed By: #### L100.0100, L502.0250, L500.4050, L500.4100, L501.9520 #### [facility] [address] [place], [place], [address] URINALYSIS, COMPLETE Collected: 04/11/2018 Status: F Source: [place] 10:58 AM [facility] Order Comment: How was Urine Obtained? [...] URINE RARE Performed By: #### L400.0001 #### [facility] [address] [place], [address] T4 FREE DIRECT Collected: 04/11/2018 Status: F Source: [place] 10:58 AM [facility] Order Comment: PLEASE ADD T4F TPO AND THYROGLOBULIN AB PER XTRA SERUM TUBE WAS DRAWN Order Date: 04/11/18 Order Info: 0786-1 - CMP Order Info: [id number] - LIPID Order Info: 3016-3 - TSH TYPE CODE TESTS RESULT OUT OF RANGE REFERENCE UNITS LAB L506.0400 0.76-1.46 ng/dL Normal T4 FREE 0.87 DIRECT Performed By: #### L506.0400 #### [facility] [address] [place], [address] INITAL EVALUATION (1) Observed: 03/22/2018 Status: F Source: [place] - PT 5:39 PM [facility] [address] [place] [address]. [address] [place], [place] [address] Fax REHABILITATION SERVICES INITIAL EVALUATION MR#: [id number] Acct: [id number] Name: LATANYA BOLANOS Rep #: [id number] : 1975 43 From: Cherelle Coy MPT [...] to be FAXED BACK to us at [phone] for Medicare purposes. Please let me know [...] ADMITTING ENCOUNTER LOCATION SOURCE NUMBER CLASS 09/05/2018 [id number] Ambulatory [place] 4 [facility] ing:MTRAD Repository 09/04/2018 [id number] Ambulatory [place] 4 [facility] ing:MFPLAB Repository 08/23/2018 [id number] Ambulatory [place] 3 [facility] ing:MFPLAB Repository 05/19/2018 [id number] Ambulatory [place] 0 [facility] ing:NM Repository 05/18/2018 [id number] Ambulatory [place] 4 [facility] ing:RAD Repository 04/11/2018 [id number] Ambulatory [place] 0 [facility] ing:MFPLAB Repository 03/22/2018 [id number] Ambulatory [place] 6 [facility] ing:PT Repository PAYERS PAYERS ENCOUNTER GUARANTOR PAYER SUBSCRIBER SOURCE 09/05/2018 LATANYA [place] Primary JEROD [place] [id number] Insurance:ANTHEMPolic SANDERDOB: Community DAYBREAK y Number: [id number] [id number] Repository [address]Zhf: (484) Date:4015-28-70AK [phone] () [id number] [place] [address] 87919ZR: 09/05/2018 Secondary NOT GIVENUNK [place] Insurance:SELF PAY [facility] Number: Effective Repository Date:2018-09-05 09/04/2018 LATANYA Blum Primary JEROD [place] [id number] Insurance:ANTHEMPolic SANDERDOB: Community DAYBREAK y Number: [id number] [id number] Repository 09736Zrk: (484) Date:2833-83-17PJ [phone] () [id number] [place] [address] 00700BC: 09/04/2018 Secondary NOT GIVENUNK [place] Insurance:SELF PAY [facility] Number: Effective Repository Date:2018-09-04 08/23/2018 LATANYA Blum Primary JEROD T [place] [id number] Insurance:ANTHEMPolic SANDERDOB: Community DAYBREAK y Number: [id number] [id number] Repository 434[address]Vfp: (484) Date:7878-87-17NC [phone] () [id number] ROJAS [address]IE: 08/23/2018 Secondary NOT GIVENUNK [place] Insurance:SELF PAY [facility]: Effective Repository Date:2018-08-23 05/19/2018 LATANYA Blum Primary JEROD [place] [id number] Insurance:ANTHEMPolic SANDERDOB: Community DAYBREAK y Number: [id number], [place] [id number] Repository 74[address]Dhe: (484) Date:2723-81-05EV [phone] () [id number] ROJAS 98684LH: 05/19/2018 Secondary NOT GIVENUNK [place] Insurance:SELF PAY [facility] Number: Effective Repository Date:2018-05-18 05/18/2018 LATANYA Blum Primary JEROD [place] [id number] Insurance:ANTHEMPolic SANDERDOB: Community DAYBREAK y Number: [id number] [place] [id number] Repository 311[address]Qnl: (484) Date:5192-13-07UU [phone] () [id number] ROJAS 45[address]ST: 05/18/2018 Secondary NOT GIVENUNK [place] Insurance:SELF PAY [facility] Number: Effective Repository Date:2018-05-16 04/11/2018 [place] Primary JEROD [place] [id number] Insurance:ANTHEMPolic SANDERDOB: Community [place]break y Number: [id number] [id number] Repository 534[address]Eox: (484) Date:9946-46-68HX [phone] () [id number] ROJAS 01905JX: 04/11/2018 Secondary NOT GIVENUNK [place] Insurance:SELF PAY [facility] Number: Effective Repository Date:2018-04-11 03/22/2018 Latanya [place] Primary JEROD [place] [id number] Insurance:ANTHEMPolic SANDERDOB: Community [place]break y Number: [id number], [place] [id number] Repository 68089Lcp: 484) Date:2393-73-93TJ [phone] () [id number], [place] [address]CX: 03/22/2018 Secondary NOT GIVENUNK [place] Insurance:SELF PAY [facility] Number: Effective Repository Date:2018-03-17
== END ==
PROVIDERS: Family Provider Family Medicine; PCP Family Medicine; Referring Provider Family Medicine; Visit Provider Family Medicine
DX: M25.571 Pain in right ankle and joints of right foot (principal)
CPT/HCPCS: 73610

== ENCOUNTER → 2018-09-25 09:42 | Outpatient (CLI) | payer BC, SELFPAY | PROVIDERS: Family Provider Family Medicine; PCP Family Medicine; Visit Provider Family Medicine | DX: Z00.00 Encounter for general adult medical examination without abnormal findings (principal) ==

== ENCOUNTER → 2018-12-08 10:08 | Outpatient (CLI) | payer BC, SELFPAY ==
[2018-12-08 12:21] LABS: Absolute Lymphocyte Count 1.99 X10^3/ul (0.83-4.51); Absolute Neutrophil Count 2.5 X10^3/uL (2.0-7.7); Basophil# 0.03 X10^3/uL; Basophil% 0.6 % (0-1); Eosinophil# 0.14 X10^3/uL; Eosinophils% 2.8 % (0-5); Hematocrit 38.6 % (37-47); Hemoglobin 12.4 g/dl (12.0-15.0); Lymphocyte # 1.99 X10^3/ul (4.0); Lymphocyte % 39.4 % (19-41); Mean Corp Hgb Conc 32.1 g/gl (32-36); Mean Corpuscular Hgb 25.9 pg (27.0-32.0); Mean Corpuscular Volume 80.8 fL (81-99); Mean Platelet Vol. 11.1 fl (6.2-12.0); Monocyte# 0.38 X10^3/uL; Monocyte% 7.5 % (0-10); Neutrophil # 2.51 X10^3/uL (2.7-7.7); Neutrophil % 49.7 % (47-70); Platelet Count 229 K/mm3 (150-450); RBC Distribution Width CV 12.8 % (11.6-14.6); RBC Distribution Width SD 37.8 fl (35.1-43.9); Red Blood Count 4.78 M/mm3 (4.2-5.4); White Blood Count 5.1 K/mm3 (4.4-11.0)
[2018-12-08 12:27] LABS: POSITIVE COUNT NO; POSITIVE DIFFERENTIAL NO; POSITIVE MORPHOLOGY NO
[2018-12-08 12:33] LABS: Hemoglobin A1c 9.7 % (4.2-6.3)
[2018-12-08 12:41] LABS: ALB/GLOB Ratio 1.2 RATIO (0.9-2.4); AST(SGOT) 73 U/L (15-37); Alanine Aminotransfer ALT/SGPT 97 U/L (13-56); Alkaline Phosphatase 125 U/L (45-117); Anion Gap 9 (5-15); BUN 18 mg/dL (7-18); BUN/Creat Ratio 28.6 RATIO (10-20); Calcium,Total 9.1 mg/dL (8.5-10.1); Chloride 103 mmol/L (98-107); Creatinine, Serum 0.63 mg/dL (0.55-1.02); EST Glomerular Filtration Rate 108 mL/min (>60); Est Glom Filt Rate - Afr Amer 131 mL/min (>60); Globulin 3.3 g/dL (2.2-4.2); Glucose 242 mg/dL (74-106); Magnesium 1.6 mg/dL (1.6-2.6); Protein, Total 7.3 g/dL (6.4-8.2); Sodium Level 140 mmol/L (136-145); T4 Free Direct 1.11 ng/dL (0.76-1.46); Thyroid Stim Hormone (TSH) 2.28 uIU/mL (0.358-3.74)
== END ==
PROVIDERS: Family Provider Family Medicine; PCP Family Medicine; Referring Provider Family Medicine; Visit Provider Family Medicine
DX: I10 Essential (primary) hypertension (principal); E11.9 Type 2 diabetes mellitus without complications; E06.3 Autoimmune thyroiditis; R80.9 Proteinuria, unspecified
CPT/HCPCS: 36415; 80053; 82043; 82570; 83036; 83735; 84439; 84443; 85025

== ENCOUNTER → 2018-12-28 16:56 | Outpatient (CLI) | payer BC, SELFPAY ==
[2018-12-28 18:33] LABS: Ferritin 40 ng/mL (8-252); Iron 45 ug/dL (50-170)
== END ==
PROVIDERS: Family Provider Family Medicine; PCP Family Medicine; Referring Provider Family Medicine; Visit Provider Internal Medicine Pulmonary Disease
DX: Z86.2 Personal history of diseases of the blood and blood-forming organs and certain disorders involving the immune mechanism (principal); G47.10 Hypersomnia, unspecified; G25.81 Restless legs syndrome
CPT/HCPCS: 36415; 82728; 83540

== ENCOUNTER → 2019-01-02 12:05 | Outpatient (CLI) | payer BC, SELFPAY ==
[2019-01-02 14:26] LABS: ALB/GLOB Ratio 1.1 RATIO (0.9-2.4); AST(SGOT) 51 U/L (15-37); Alanine Aminotransfer ALT/SGPT 95 U/L (13-56); Albumin, Serum 4.1 g/dL (3.2-5.0); Alkaline Phosphatase 133 U/L (45-117); Anion Gap 7 (5-15); BUN 10 mg/dL (7-18); Calcium,Total 9.4 mg/dL (8.5-10.1); Chloride 102 mmol/L (98-107); Creatinine, Serum 0.59 mg/dL (0.55-1.02); EST Glomerular Filtration Rate 117 mL/min (>60); Est Glom Filt Rate - Afr Amer 142 mL/min (>60); Globulin 3.6 g/dL (2.2-4.2); Glucose 129 mg/dL (74-106); Protein, Total 7.7 g/dL (6.4-8.2); Sodium Level 138 mmol/L (136-145)
[2019-01-03 12:12] LABS: HEPATITIS B SURFACE AG Negative (Negative); Hep B Surface Antibodies Non Reactive (.); Hep C Antibodies <0.1 s/co ratio (0.0-0.9)
== END ==
PROVIDERS: Family Provider Family Medicine; PCP Family Medicine; Referring Provider Family Medicine; Visit Provider Family Medicine
DX: R94.5 Abnormal results of liver function studies (principal)
CPT/HCPCS: 36415; 80053; 86706; 86803; 87340

== ENCOUNTER → 2019-06-27 12:24 | Outpatient (CLI) | payer BC, SELFPAY ==
[2019-06-27 14:12] LABS: Absolute Lymphocyte Count 2.65 X10^3/uL (0.83-4.51); Absolute Neutrophil Count 3.9 X10^3/uL (2.0-7.7); Basophil# 0.06 X10^3/uL; Basophil% 0.8 % (0-1); Eosinophil# 0.21 X10^3/uL; Eosinophils% 2.9 % (0-5); Hematocrit 42.2 % (37-47); Hemoglobin 13.2 g/dL (12.0-15.0); Lymphocyte # 2.65 X10^3/ul (4.0); Lymphocyte % 36.7 % (19-41); Mean Corp Hgb Conc 31.3 g/dL (32-36); Mean Corpuscular Hgb 26.3 pg (27.0-32.0); Mean Corpuscular Volume 84.2 fL (81-99); Mean Platelet Vol. 11.5 fl (6.2-12.0); Monocyte# 0.38 X10^3/uL; Monocyte% 5.3 % (0-10); NRBC Flagged by Analyzer 0 % (0-5); Neutrophil % 53.9 % (47-70); Platelet Count 265 K/mm3 (150-450); RBC Distribution Width SD 39.9 fl (35.1-43.9); Red Blood Count 5.01 M/mm3 (4.2-5.4); White Blood Count 7.2 K/mm3 (4.4-11.0)
[2019-06-27 14:30] LABS: Hemoglobin A1c 11.2 % (4.2-6.3)
[2019-06-27 14:34] LABS: AST(SGOT) 111 U/L (15-37); Alanine Aminotransfer ALT/SGPT 106 U/L (13-56); Alkaline Phosphatase 126 U/L (45-117); Anion Gap 10 (5-15); BUN 16 mg/dL (7-18); BUN/Creat Ratio 23.8 RATIO (10-20); Calcium,Total 9.4 mg/dL (8.5-10.1); Chloride 99 mmol/L (98-107); Cholesterol 115 mg/dL (200); Creatinine, Serum 0.67 mg/dL (0.55-1.02); EST Glomerular Filtration Rate 100 mL/min (>60); Est Glom Filt Rate - Afr Amer 121 mL/min (>60); Ferritin 117 ng/mL (8-252); Globulin 3.9 g/dL (2.2-4.2); Glucose 162 mg/dL (74-106); High Density Lipoprotein 23 mg/dL; Iron 82 ug/dL (50-170); Iron Binding Capacity,Total 306 ug/dL (250-450); Potassium 3.7 mmol/L (3.5-5.1); Protein, Total 7.9 g/dL (6.4-8.2); Sodium Level 137 mmol/L (136-145); T4 Free Direct 0.95 ng/dL (0.76-1.46); Thyroid Stim Hormone (TSH) 5.49 uIU/mL (0.358-3.74); Triglycerides 184 mg/dL; Very Low Density Lipoprotein 37 mg/dL (5-40)
[2019-06-27 14:46] LABS: Microalbumin,Random Urine 34.3 mg/L (NO RANGE EST.); Microalbumin:Creatinine Ratio 13.2 mg/g CRE (<30 mg/g CRE)
== END ==
PROVIDERS: Family Provider Family Medicine; PCP Family Medicine; Referring Provider Family Medicine; Visit Provider Family Medicine
DX: E61.1 Iron deficiency (principal); E11.9 Type 2 diabetes mellitus without complications; E06.3 Autoimmune thyroiditis; E78.5 Hyperlipidemia, unspecified
CPT/HCPCS: 36415; 80053; 80061; 82043; 82570; 82728; 83036; 83540; 83550; 84439; 84443; 85025

== ENCOUNTER 2020-03-18 14:23 | Emergency (ER) | payer BC, SELFPAY ==
[2020-03-18 14:25] VITALS: BP 147/86; PULSE 103; RESP 20; TEMP 36.3; O2SAT 96; BMI 41.1
--- NOTE | 2020-03-18 14:50 | EKG12_ITS ---
Test Reason : SOB Blood Pressure : / mmHG Vent. Rate : 094 BPM Atrial Rate : 094 BPM P-R Int : 190 ms QRS Dur : 094 ms QT Int : 374 ms P-R-T Axes : 050 -69 036 degrees QTc Int : 467 ms Normal sinus rhythm Low voltage QRS Incomplete right bundle branch block Left anterior fascicular block Nonspecific T wave abnormality Prolonged QT Abnormal ECG Confirmed by RONAK CLEMONS, ESPERANZA ([id number]), research editor YANIRA JACKSON ([id number]) on 03/24/2020 9:18:31 AM Referred By: ROSE Confirmed By:ESPERANZA SIMONS MD
--- NOTE | 2020-03-18 14:51 | ED.VISSUMM ---
- ER Visit Summary Date of Service: 03/18/20 Chief Complaint: Shortness of breath History of Present Illness: The patient is a 45 F has medical history of reflux, asthma, diabetes, hypertension, high cholesterol, irritable bowel. Patient was COVID +February 13. States she has been intermittently shortness of breath for several months. Even before that took place. No substantial chest pain. Worse supine. Not as much with exertion. No hemoptysis. No history of DVT or PE. No calf pain or swelling. No recent travel, surgery, immobilization or hospitalization. No pleuritic pain. No recent fever or chills. States the first week of February when she was diagnosed with COVID she had chills at that time and a low-grade fever of 100. Denies any melena. Physical Examination: Middle-aged female no acute distress vital signs are stable and afebrile. H EENT exam unremarkable. Neck nontender no JVD. Lungs clear to auscultation bilaterally. Heart regular rhythm rate about 100 no murmur. Chest were nontender. Abdomen soft nontender normal bowel sounds no peritoneal signs. Extremities moves all 4. Equal symmetrical radial pulses. Calves nontender without edema or cords. Back nontender. Neurologically she is awake and alert with no focal motor deficits. Test Results: Chest x-ray portable 1 view read both by myself the radiologist shows no acute abnormality. Normal cardiac silhouette. No infiltrate. EKG normal sinus rhythm rate of 94 no acute signs of TN or ischemia. There was inverted T waves in V1 and V2. CBC normal white count 9. Hemoglobin 12. Chemistries normal glucose 119. Normal creatinine gap. Troponin normal. D-dimer normal at less than or equal to 0.27. Emergency Department Course and Treatment: Patient will undergo cardiac work-up. Her exam is unremarkable. I will do a d-dimer she does not have a specific risk factors for it such as immobilization or family history but with her recent COVID diagnosis and the possibility that having hypercoagulable state associated with it I do think it is worth evaluating with her subjective dyspnea. Treatment Plan: Repeat exam patient is doing well at 1615 p.m. She and I went over all her test results. She will be discharged home to follow-up with her primary care physician. Disposition: Discharge Impression: Acute dyspnea of uncertain etiology History of insulin-dependent diabetes History of hypertension high cholesterol Recent COVID positive diagnosis approximately 1 month ago This note was generated with [employer] dictation software. It may contain incorrect words, spelling, and punctuation that were not noted in review of the chart prior to signing ED Disposition - Plan for ED Patient: Referrals: Charly Manuel MD [Primary Care Provider] -
[2020-03-18 15:01] VITALS: BP 130/93; PULSE 93; RESP 15; O2SAT 96
--- NOTE | 2020-03-18 15:07 | NURSING ---
NO OLD EKGS
[2020-03-18 15:19] LABS: Absolute Neutrophil Count 5.8 X10^3/uL (2.0-7.7); Basophil# 0.06 X10^3/uL; Basophil% 0.6 % (0-1); Eosinophil# 0.25 X10^3/uL; Eosinophils% 2.6 % (0-5); Hematocrit 40.8 % (37-47); Hemoglobin 12.8 g/dL (12.0-15.0); Lymphocyte % 30.9 % (19-41); Mean Corp Hgb Conc 31.4 g/dL (32-36); Mean Corpuscular Hgb 25.8 pg (27.0-32.0); Mean Corpuscular Volume 82.3 fL (81-99); Mean Platelet Vol. 11.1 fl (6.2-12.0); Monocyte# 0.62 X10^3/uL; Monocyte% 6.4 % (0-10); NRBC Flagged by Analyzer 0 % (0-5); Neutrophil # 5.76 X10^3/uL (2.7-7.7); Neutrophil % 59.3 % (47-70); Platelet Count 287 K/mm3 (150-450); RBC Distribution Width CV 13.3 % (11.6-14.6); RBC Distribution Width SD 39.3 fl (35.1-43.9); Red Blood Count 4.96 M/mm3 (4.2-5.4); White Blood Count 9.7 K/mm3 (4.4-11.0)
--- NOTE | 2020-03-18 15:25 | RAD_ITS ---
STUDY: X-RAY CHEST REASON FOR EXAM: Female, 45 years old. COVID + on February 13. Has increased SOB. Pt reports she has had a negative test since then. TECHNIQUE: Single AP portable view of the chest. COMPARISON: None. FINDINGS: EKG electrodes are seen. The lungs are clear and expanded. Scattered calcified granulomas. There is no demonstrated pleural abnormality. Normal size heart. Normal mediastinum and justin. Normal visualized pulmonary arteries. Normal visualized aortic arch and descending thoracic aorta. Normal visualized thoracic spine. Normal visualized ribs, clavicles, and shoulders. There is no demonstrated abnormality of the visualized soft tissue structures of the upper abdomen. RAD/Chest 1 View (Portable) IMPRESSION: No acute abnormalities present. Electronically Signed: Nate [place], at 15:47 EDT , Service support ,
[2020-03-18 15:49] LABS: D-Dimer Quantitative (DVT/PE) <= 0.27 FEU/ug/m (0.27-0.49)
[2020-03-18 15:59] LABS: Anion Gap 5 (5-15); BUN 16 mg/dL (7-18); BUN/Creat Ratio 21.2 RATIO (10-20); Calcium,Total 9.3 mg/dL (8.5-10.1); Chloride 101 mmol/L (98-107); Creatinine, Serum 0.75 mg/dL (0.55-1.02); EST Glomerular Filtration Rate 88 mL/min (>60); Est Glom Filt Rate - Afr Amer 106 mL/min (>60); Estimated Creatinine Clearance 86.81 ml/min; Glucose 119 mg/dL (74-106); Potassium 3.5 mmol/L (3.5-5.1); Sodium Level 137 mmol/L (136-145)
--- NOTE | 2020-03-18 16:16 | ED.DEP ---
ED Disposition - Plan for ED Patient: Disposition: Home or Assisted Living Instructions: ED Dyspnea Referrals: Charly Manuel MD [Primary Care Provider] - 3-5 Days Additional Instructions: All your lab tests, chest x-ray and EKG were unremarkable. Follow-up with your doctor next several days. Return if feeling worse.
[2020-03-18 16:35] VITALS: BP 121/88; PULSE 89; RESP 15; O2SAT 96
== END 2020-03-18 16:36 | disposition home or self-care (01) ==
PROVIDERS: Emergency Provider Emergency Medicine; PCP Family Medicine
DX: R06.00 Dyspnea, unspecified (principal); E11.9 Type 2 diabetes mellitus without complications; I10 Essential (primary) hypertension; E78.00 Pure hypercholesterolemia, unspecified; J45.909 Unspecified asthma, uncomplicated; K58.9 Irritable bowel syndrome, unspecified; K21.9 Gastro-esophageal reflux disease without esophagitis; Z79.4 Long term (current) use of insulin; Z79.899 Other long term (current) drug therapy; Z86.19 Personal history of other infectious and parasitic diseases
CPT/HCPCS: 71045; 80048; 84484; 85025; 85379; 93005; 99284

== ENCOUNTER → 2020-05-14 06:14 | Outpatient (CLI) | payer BC, SELFPAY ==
--- NOTE | 2020-05-14 14:03 | BRONCHALL ---
Bronchoprovocation Challenge - Bronchoprovocation Challenge Bronchoprovocation Challenge: BRONCHOPROVOCATION STUDY INTERPRETATION Brief HPI: Patient is a 45 year old female, currently under the care of Dorcas Bacon, who presents to [facility] for a bronchoprovocation study secondary to diagnosis of dyspnea. Respiratory therapist reports good effort and reproducible results. Interpretation: Initial spirometry showed no large airways obstructive ventilatory defect. The patient was then given increasingly concentrated doses of methacholine in a stepwise fashion, using a modified ATS protocol. The patient?s maximum reduction in FEV1 was 12 percent predicted. Impression: Negative Bronchoprovocation study. This is NOT consistent with the diagnosis of asthma.
== END ==
PROVIDERS: PCP Family Medicine; Referring Provider Physician Assistant; Visit Provider Physician Assistant
DX: R06.02 Shortness of breath (principal)
CPT/HCPCS: 94070; 95070; J3490; J7674